=== PATIENT | male | born 1995 | race Caucasian/White ===

== ENCOUNTER → 2018-06-15 | Outpatient (REF) | payer OTHER ==
[2018-06-15 20:07] LABS: CHLAMYDIA DNA AMPLIFICATION NEGATIVE (NEGATIVE); GC DNA AMPLIFICATION NEGATIVE (NEGATIVE)
== END ==
LOC: M SFHCLERA 15:58
DX: Z20.9 Contact with and (suspected) exposure to unspecified communicable disease (principal)